=== PATIENT | male | born 2000 | race Caucasian/White ===

== ENCOUNTER → 2025-06-30 17:51 | Outpatient (REF) | payer BC, SELFPAY | LOC: RCS 17:51 | PROVIDERS: ATTENDING PHYSICIAN Internal Medicine Geriatric Medicine | DX: E78.2 Mixed hyperlipidemia (principal); F41.9 Anxiety disorder, unspecified; E55.9 Vitamin D deficiency, unspecified; R29.818 Other symptoms and signs involving the nervous system; G43.009 Migraine without aura, not intractable, without status migrainosus; E16.2 Hypoglycemia, unspecified; G47.00 Insomnia, unspecified; Z13.89 Encounter for screening for other disorder | CPT/HCPCS: 93306 ==

== ENCOUNTER → 2025-07-08 14:35 | Outpatient (REF) | payer BC, SELFPAY | LOC: DHSLP 14:35 | PROVIDERS: ATTENDING PHYSICIAN Internal Medicine Geriatric Medicine | DX: G47.30 Sleep apnea, unspecified (principal); G47.8 Other sleep disorders; R06.83 Snoring | CPT/HCPCS: 95810 ==

== ENCOUNTER → 2025-08-03 07:32 | Outpatient (REF) | payer BC, SELFPAY ==
--- NOTE | 2025-08-03 09:29 | EEG.RPT ---
Electroencephalogram Report
Recording
Date of EE08/03/25
Type of EEG: Routine
Length of EEG recordin minutes
Done with Video Recording: Yes
Patient Status: Outpatient
Recording Conditions: Awake and Drowsy
Hyperventilation Performed: Yes
Photic Stimulation Performed: Yes
Report
GREATER THAN 1 HOUR EEG REPORT
EEG INTERPRETATION:
Unremarkable EEG for age
CLINICAL CORRELATION:
A normal EEG does not rule out a diagnosis of epilepsy. If clinical suspicion for seizure persists, a prolonged recording may be warranted.
Clinical correlation is advised.
METHODS:
A 21 channel digitized electroencephalogram (EEG) was performed using the 10/20 international system of electrode placement and one-lead of ECG recorded. Video was recorded. Persyst quantitative EEG analysis was performed.
ELECTROENCEPHALOGRAPHER IMPRESSION(S):
Quality of study
Good
Background
There was an unremarkable anterior-posterior voltage gradient of alpha frequency.
With eye opening the background activity changed to a low voltage mixture of frequencies.
There were no significant asymmetries of background activity noted.
Sleep
Drowsiness present
Stage I present
Stage 2 present
Hyperventilation
No driving
Photic Stimulation
No driving
ECG
Normal sinus rhythm
== END ==
LOC: EEG 07:32
PROVIDERS: ATTENDING PHYSICIAN Internal Medicine Geriatric Medicine
DX: E78.2 Mixed hyperlipidemia (principal); F41.9 Anxiety disorder, unspecified; E55.9 Vitamin D deficiency, unspecified; R29.818 Other symptoms and signs involving the nervous system; G43.009 Migraine without aura, not intractable, without status migrainosus; E16.2 Hypoglycemia, unspecified; G47.00 Insomnia, unspecified; Z13.89 Encounter for screening for other disorder; R06.83 Snoring; R00.2 Palpitations; R68.89 Other general symptoms and signs; G40.A09 Absence epileptic syndrome, not intractable, without status epilepticus
CPT/HCPCS: 95813